=== PATIENT | male | born 1955 | race Caucasian/White ===

== ENCOUNTER 2022-07-01 20:14 | Inpatient (IN) | payer MEDICARE, MEDICAID ==
[~2022-07-01] VITALS: Ht 172.7 cm; Wt 73.6 kg
[2022-07-01 21:15] LABS: Urine Bacteria FEW /hpf (None Seen); Urine Blood Negative /uL (Negative); Urine Mucus FEW (None Seen); Urine Specific Gravity 1.023 (1.001-1.035); Urine WBC 2 /hpf (0 - 3)
[2022-07-01 22:44] LABS: Albumin 3.6 g/dL (3.4-5.0); BUN/Creatinine Ratio 10.5; Calcium 9.1 mg/dL (8.5-10.1)
[2022-07-01 22:47] LABS: Bilirubin, Total 0.1 mg/dL (0.2-1.0); Total Protein 7.1 g/dL (6.4-8.2)
[2022-07-01 22:53] LABS: Basophils # (auto) 0 10 ^3/uL (0-0.2); Basophils % (auto) 0.5 % (0.0-2.0); Eosinophils # (auto) 0.3 10 ^3/uL (0-0.8); Eosinophils % (auto) 2.9 % (0.0-7.0); Hematocrit 39.3 % (41.0-53.0); Hemoglobin 12.7 g/dL (13.5-17.5); Lymphocytes # (auto) 2.5 10 ^3/uL (0.4-5.4); Lymphocytes % (auto) 25.9 % (10.0-50.0); Mean Corpuscular Hemoglobin 29.1 pg (28.0-32.0); Mean Corpuscular Hgb Conc. 32.4 g/dL (32.0-36.0); Mean Corpuscular Volume 89.9 fL (80.0-100.0); Monocytes # (auto) 0.8 10 ^3/uL (0-1.3); Monocytes % (auto) 7.9 % (0.0-12.0); Neutrophils # (auto) 6.1 10 ^3/uL (1.6-8.6); Neutrophils % (auto) 62.8 % (37.0-80.0); Red Blood Cells 4.37 10^6/uL (4.5-5.90); Red Cell Distribution Width 13.5 % (11.8-14.3); White Blood Cell 9.8 10^3/uL (4.4-10.8)
[2022-07-01 23:19] LABS: Potassium 2.9 mmol/L (3.5-5.1)
[2022-07-02] MEDS ORDERED: ASPirin 325 MG TAB PO ONE (01:15)
[2022-07-02] MEDS ORDERED: NITROGLYCERIN 0.4 MG SL TAB SL ONE (01:15)
[2022-07-02] MEDS ORDERED: ONDANSETRON HCL 4 MG/2 ML VIAL IV PRN (01:30)
[2022-07-02] MEDS ORDERED: HYDROcodone-ACET 5/325MG TAB PO ONE (01:30)
[2022-07-02] MEDS ORDERED: TEMAZEPAM 15 MG CAP PO PRN (01:30)
[2022-07-02] MEDS ORDERED: DOCUSATE SOD 100 MG CAP PO PRN (01:30)
[2022-07-02 02:05] VITALS: BP 184/105
[2022-07-02] MEDS ORDERED: MORPHINE SULFATE INJ 2 MG/ml SYRG IV PRN (03:45)
[2022-07-02] MEDS ORDERED: NITROGLYCERIN 0.4 MG SL TAB SL PRN (03:45)
[2022-07-02 06:31] LABS: Basophils # (auto) 0.1 10 ^3/uL (0-0.2); Basophils % (auto) 0.8 % (0.0-2.0); Eosinophils # (auto) 0.3 10 ^3/uL (0-0.8); Eosinophils % (auto) 2.8 % (0.0-7.0); Hematocrit 39.1 % (41.0-53.0); Hemoglobin 12.8 g/dL (13.5-17.5); Lymphocytes # (auto) 2.5 10 ^3/uL (0.4-5.4); Lymphocytes % (auto) 24.9 % (10.0-50.0); Mean Corpuscular Hemoglobin 29.3 pg (28.0-32.0); Mean Corpuscular Hgb Conc. 32.8 g/dL (32.0-36.0); Mean Corpuscular Volume 89.2 fL (80.0-100.0); Monocytes % (auto) 9.7 % (0.0-12.0); Neutrophils # (auto) 6.2 10 ^3/uL (1.6-8.6); Neutrophils % (auto) 61.8 % (37.0-80.0); Nucleated Red Blood Cells % 0.1 %; Red Blood Cells 4.38 10^6/uL (4.5-5.90); Red Cell Distribution Width 13.9 % (11.8-14.3); White Blood Cell 10.1 10^3/uL (4.4-10.8)
[2022-07-02] MEDS: SODIUM CHLOR 0.9% PF (SALINE LOCK) 10ML VIAL/SYR IV SCH ×3 (06:37→23:15)
[2022-07-02 06:41] LABS: Albumin 3.6 g/dL (3.4-5.0); BUN/Creatinine Ratio 12.2; Calcium 8.9 mg/dL (8.5-10.1)
[2022-07-02] MEDS: POTASSIUM CHL 20MEQ/100ML 100 ML IV SCH ×2 (06:42→10:00)
[2022-07-02] MEDS: MORPHINE SULFATE INJ 2 MG/ml SYRG IV PRN ×3 (06:42→15:40)
[2022-07-02 06:44] LABS: Bilirubin, Total 0.2 mg/dL (0.2-1.0); Total Protein 7.2 g/dL (6.4-8.2)
[2022-07-02] MEDS ORDERED: IOHEXOL 300 MG/ML 100ML BOTTLE IJ ONE (07:17)
[2022-07-02] MEDS: hydrALAZINE HCL 20 MG/ML VL IV PRN (08:31)
[2022-07-02] MEDS: FAMOTIDINE (10MG/ML) 2ML VL IV SCH (10:43)
[2022-07-02] MEDS: amLODIPine BESYLATE 5 MG TAB PO SCH (10:43)
[2022-07-02] MEDS: ASPirin 81 mg TAB PO SCH (10:43)
[2022-07-02] MEDS: METOPROLOL TARTRATE 25 MG TAB PO SCH ×2 (10:44→23:16)
[2022-07-02] MEDS: CLINDAMYCIN 300MG IV 50 ML IV SCH ×2 (13:49→23:15)
[2022-07-02 17:00] LABS: Cholesterol 192 mg/dL (< 200)
[2022-07-02 17:02] LABS: HDL Cholesterol 42 mg/dL (40-59); LDL Cholesterol 112 mg/dL (< 100); Triglycerides 269 mg/dL (< 150)
[2022-07-02] MEDS ORDERED: LISINOPRIL 10 MG TAB PO ONE (17:30)
[2022-07-02 22:11] VITALS: BP 144/80
[2022-07-02 22:34] VITALS: BP 144/80
[2022-07-02] MEDS ORDERED: LISI2.5T47 PO (22:34)
[2022-07-02] MEDS ORDERED: IPRAAER6 INH (22:34)
[2022-07-02] MEDS ORDERED: ALBU108A5 INH (22:34)
[2022-07-02] MEDS: ATORVASTATIN 20 MG TAB PO SCH (23:15)
[2022-07-03] VITALS (7 sets, daily range): BP systolic 122–161; BP diastolic 56–91
[2022-07-03] MEDS: MORPHINE SULFATE INJ 2 MG/ml SYRG IV PRN (00:14)
[2022-07-03] MEDS: hydrALAZINE HCL 20 MG/ML VL IV PRN (04:46)
[2022-07-03] MEDS: SODIUM CHLOR 0.9% PF (SALINE LOCK) 10ML VIAL/SYR IV SCH ×3 (05:34→21:44)
[2022-07-03] MEDS: CLINDAMYCIN 300MG IV 50 ML IV SCH ×3 (05:34→21:43)
[2022-07-03 06:09] LABS: INR 0.92 (0.9-1.15); Partial Thromboplastin Time 27.6 sec (24.6-33.4)
[2022-07-03 06:12] LABS: Albumin 3.2 g/dL (3.4-5.0); Calcium 8.7 mg/dL (8.5-10.1); Potassium 3.8 mmol/L (3.5-5.1)
[2022-07-03 06:16] LABS: BUN/Creatinine Ratio 19.2; Bilirubin, Total 0.3 mg/dL (0.2-1.0); Total Protein 6.6 g/dL (6.4-8.2)
[2022-07-03 06:41] LABS: Basophils # (auto) 0 10 ^3/uL (0-0.2); Basophils % (auto) 0.4 % (0.0-2.0); Eosinophils # (auto) 0.3 10 ^3/uL (0-0.8); Eosinophils % (auto) 2.6 % (0.0-7.0); Hematocrit 37.9 % (41.0-53.0); Hemoglobin 12.4 g/dL (13.5-17.5); Lymphocytes # (auto) 2.6 10 ^3/uL (0.4-5.4); Lymphocytes % (auto) 26.7 % (10.0-50.0); Mean Corpuscular Hgb Conc. 32.7 g/dL (32.0-36.0); Mean Corpuscular Volume 88.6 fL (80.0-100.0); Monocytes # (auto) 0.8 10 ^3/uL (0-1.3); Monocytes % (auto) 8.5 % (0.0-12.0); Neutrophils # (auto) 6.1 10 ^3/uL (1.6-8.6); Neutrophils % (auto) 61.8 % (37.0-80.0); Nucleated Red Blood Cells % 0.2 %; Red Blood Cells 4.28 10^6/uL (4.5-5.90); Red Cell Distribution Width 13.6 % (11.8-14.3); White Blood Cell 9.9 10^3/uL (4.4-10.8)
[2022-07-03] MEDS: FAMOTIDINE (10MG/ML) 2ML VL IV SCH (10:48)
[2022-07-03] MEDS: ASPirin 81 mg TAB PO SCH (10:49)
[2022-07-03] MEDS: amLODIPine BESYLATE 5 MG TAB PO SCH (10:50)
[2022-07-03] MEDS: METOPROLOL TARTRATE 25 MG TAB PO SCH ×2 (10:50→21:44)
[2022-07-03] MEDS: LISINOPRIL 10 MG TAB PO SCH (10:51)
[2022-07-03] MEDS: IBUPROFEN 600 MG TAB PO PRN ×2 (10:51→18:39)
[2022-07-03] MEDS: ALBUTEROL SULF 2.5 MG/0.5ML(0.5%) NEB SOLN NEB PRN ×2 (12:05→18:16)
[2022-07-03] MEDS: IPRATROPIUM BROM 0.5 MG/2.5ML INH SOL NEB PRN ×2 (12:05→18:16)
[2022-07-03] MEDS: ATORVASTATIN 20 MG TAB PO SCH (21:44)
[2022-07-04] VITALS (8 sets, daily range): BP systolic 107–156; BP diastolic 61–75
[2022-07-04] MEDS: MORPHINE SULFATE INJ 2 MG/ml SYRG IV PRN ×3 (00:19→22:29)
[2022-07-04] MEDS: IBUPROFEN 600 MG TAB PO PRN (05:17)
[2022-07-04] MEDS: CLINDAMYCIN 300MG IV 50 ML IV SCH ×3 (05:52→22:27)
[2022-07-04] MEDS: SODIUM CHLOR 0.9% PF (SALINE LOCK) 10ML VIAL/SYR IV SCH ×3 (05:52→22:27)
[2022-07-04] MEDS: IPRATROPIUM BROM 0.5 MG/2.5ML INH SOL NEB PRN (06:16)
[2022-07-04] MEDS: ALBUTEROL SULF 2.5 MG/0.5ML(0.5%) NEB SOLN NEB PRN (06:16)
[2022-07-04] MEDS: ASPirin 81 mg TAB PO SCH (09:17)
[2022-07-04] MEDS: FAMOTIDINE (10MG/ML) 2ML VL IV SCH (09:17)
[2022-07-04] MEDS: amLODIPine BESYLATE 5 MG TAB PO SCH (09:18)
[2022-07-04] MEDS: METOPROLOL TARTRATE 25 MG TAB PO SCH ×2 (09:18→22:28)
[2022-07-04] MEDS: LISINOPRIL 10 MG TAB PO SCH (09:19)
[2022-07-04] MEDS ORDERED: NICOTINE 21MG/24 HR TOPICAL PATCH TD ONE (11:30)
[2022-07-04] MEDS: IPRATROPIUM BROM 0.5 MG/2.5ML INH SOL NEB SCH ×2 (11:48→19:10)
[2022-07-04] MEDS: ALBUTEROL SULF 2.5 MG/0.5ML(0.5%) NEB SOLN NEB SCH ×2 (11:49→19:10)
[2022-07-04] MEDS: ATORVASTATIN 20 MG TAB PO SCH (22:28)
[2022-07-05] MEDS: ALBUTEROL SULF 2.5 MG/0.5ML(0.5%) NEB SOLN NEB PRN (02:23)
[2022-07-05] MEDS: IPRATROPIUM BROM 0.5 MG/2.5ML INH SOL NEB PRN (02:23)
[2022-07-05 05:00] VITALS: BP 127/57
[2022-07-05] MEDS: CLINDAMYCIN 300MG IV 50 ML IV SCH (05:34)
[2022-07-05] MEDS: SODIUM CHLOR 0.9% PF (SALINE LOCK) 10ML VIAL/SYR IV SCH (05:35)
[2022-07-05] MEDS: ALBUTEROL SULF 2.5 MG/0.5ML(0.5%) NEB SOLN NEB SCH ×2 (07:10)
[2022-07-05] MEDS: IPRATROPIUM BROM 0.5 MG/2.5ML INH SOL NEB SCH ×2 (07:10)
[2022-07-05] MEDS ORDERED: NICOTINE 21MG/24 HR TOPICAL PATCH TD SCH (10:00)
== END 2022-07-05 07:30 | disposition left against medical advice (07) | DRG 311 ==
LOC: ER 20:14 → TELE 07-02 03:44 → TELE-WESTW 07-02 21:38
PROVIDERS: ADMIT Nurse Practitioner Family; ATTEND Internal Medicine
DX: I24.9 Acute ischemic heart disease, unspecified (principal); I11.9 Hypertensive heart disease without heart failure; I25.10 Atherosclerotic heart disease of native coronary artery without angina pectoris; E87.6 Hypokalemia; K08.89 Other specified disorders of teeth and supporting structures; J44.9 Chronic obstructive pulmonary disease, unspecified; F17.210 Nicotine dependence, cigarettes, uncomplicated; Z53.29 Procedure and treatment not carried out because of patient's decision for other reasons; E78.5 Hyperlipidemia, unspecified; Z20.822 Contact with and (suspected) exposure to COVID-19; Z79.899 Other long term (current) drug therapy
CPT/HCPCS: 36415; 70491; 71045; 71250; 80053; 80061; 81001; 82306; 83036; 83735; 84443; 84484; 85025; 85610; 85730; 87081; 93005; 93306; 94640; G0378; J3480; J3490